=== PATIENT | male | born 1960 | race African-American/Black ===

== ENCOUNTER 2016-09-20 09:35 | Inpatient (IN) | payer OTHER ==
[2016-09-20 10:55] VITALS: BMI 30.4
--- NOTE | 2016-09-20 13:35 | HP ---
CIWA Score - CIWA Score Nausea/Vomitin-No Nausea/No Vomiting Muscle Tremors: 4-Moderate,w/Arms Extend Anxiety: 4-Mod. Anxious/Guarded Agitation: 3 Paroxysmal Sweats: 1-Minimal Palms Moist Orientation: 0-Oriented Tacttile Disturbances: 3-Moderate Itch/Numb/Burn Auditory Disturbances: 0-None Visual Disturbances: 0-None Headache: 0-None Present CIWA-Ar Total Score: 15 Admission ROS BHS - HPI Chief Complaint: DETOX TXB FOR ALCOHOL DEPENDENCE Allergies/Adverse Reactions: Allergies Allergy/AdvReac Type Severity Reaction Status Date / Time No Known Allergies Allergy Verified 09/20/16 12:18 History of Present Illness: 56 Y/O AA/MALE WITH A HX ALCOHOL DEPENDENCE AND SPORADIC COCAINE USE SEEKING DETOX TX. PT STATES WAS AT [facility] TODAY. Exam Limitations: No Limitations, Intoxication - Ebola screening Have you traveled outside of the country in the last 21 days: No Have you had contact with anyone from an Ebola affected area: No Have you been sick,other than usual withdrawal symptoms: No Do you have a fever: No - Review of Systems Constitutional: Chills, Night Sweats EENT: reports: Blurred Vision, Dental Problems (MISSING TOP TEETH) Respiratory: reports: No Symptoms reported Cardiac: reports: Chest Pain, Lightheadedness GI: reports: Diarrhea, Nausea, Poor Fluid Intake, Vomiting, Indigestion, Abdominal cramping : reports: Frequency Musculoskeletal: reports: No Symptoms Reported Neuro: reports: Headache, Tremors, Unsteady Gait, Dizziness Endocrine: reports: No Symptoms Reported Hematology: reports: No Symptoms Reported Psychiatric: reports: Orientated x3, Anxious Other Systems: Reviewed and Negative Patient History - Patient Medical History Hx Anemia: No Hx Asthma: No Hx Chronic Obstructive Pulmonary Disease (COPD): No Hx Cancer: No Hx Cardiac Disorders: Yes (Cardiac ablation for AFIB in 2012) Hx Congestive Heart Failure: No Hx Hypertension: Yes (ON MED) Hx Hypercholesterolemia: Yes (ON MED) Hx Pacemaker: No HX Cerebrovascular Accident: No Hx Seizures: Yes (?etoh related last 1 yr ago.) Hx Dementia: No Hx Diabetes: No Hx Gastrointestinal Disorders: No Hx Liver Disease: No Hx Genitourinary Disorders: No Hx Sexually Transmitted Disorders: No Hx Renal Disease (ESRD): No Hx Thyroid Disease: No Hx Human Immunodeficiency Virus (HIV): No (NEGATIVE HX) Hx Hepatitis C: No Hx Depression: No Hx Suicide Attempt: No (DENIES) Hx Bipolar Disorder: No Hx Schizophrenia: No - Patient Surgical History Past Surgical History: Yes Hx Neurologic Surgery: No Hx Cataract Extraction: No Hx Cardiac Surgery: Yes (Heart Sx, 07/2011 for SV..T CARDIAC ABLATION) Hx Lung Surgery: No Hx Breast Surgery: No Hx Breast Biopsy: No Hx Abdominal Surgery: No Hx Appendectomy: No Hx Cholecystectomy: No Hx Genitourinary Surgery: No Hx Orthopedic Surgery: No Other Surgical History: cardiac ablation for a-fib 2011 Anesthesia Reaction: No - PPD History Previous Implant?: Yes Documented Results: Negative w/o proof Implanted On Prior R Admission?: Yes Date: 08/09/15 Results: 0 mm PPD to be Administered?: Yes - Reproductive History Patient is a Female of Child Bearing Age (11 -55 yrs old): No (MALE) Patient : (N/C) - Smoking Cessation Smoking history: Current every day smoker Have you smoked in the past 12 months: Yes Aproximately how many cigarettes per day: 20 Cigars Per Day: 0 Hx Chewing Tobacco Use: No Initiated information on smoking cessation: Yes 'Breaking Loose' booklet given: 09/20/16 - Substance & Tx. History Hx Alcohol Use: Yes (BEER/VODKA) Hx Substance Use: Yes (COCAINE) Substance Use Type: Alcohol, Cocaine Hx Substance Use Treatment: Yes (LAST TX AT [facility] DETOX) - Substances Abused Alcohol Route: Oral Frequency: Daily Amount used: 10 beers/ 2 pints Age of first use: 12 Date of Last Use: 09/20/16 Cocaine Route: Smoking Frequency: 1-2 times per week Amount used: $100 Age of first use: 26 Date of Last Use: 09/16/16 Family Disease History - Family Disease History Family Disease History: Diabetes: Father (), Heart Disease: Father, Mother, Other: Father Admission Physical Exam BHS - Vital Signs Vital Signs: Vital Signs - 24 hr 09/20/16 10:53 Temperature 97.0 F L Pulse Rate 107 H Respiratory 20 Rate Blood Pressure 140/78 - Physical General Appearance: Yes: Moderate Distress, Alcohol on Breath, Intoxicated, Obese, Irritable, Anxious HEENTM: Yes: EOMI, Normocephalic, MAYLIN, Pharynx Normal Respiratory: Yes: Chest Non-Tender, Lungs Clear, Normal Breath Sounds, No Respiratory Distress Neck: Yes: No masses,lesions,Nodules, Supple, Trachea in good position Breast: Yes: Breast Exam Deferred Cardiology: Yes: Regular Rhythm, S1, S2, Tachycardia Abdominal: Yes: Normal Bowel Sounds, Non Tender, Soft, Protuberent Genitourinary: Yes: Other (N/C) Back: Yes: Within Normal Limits Musculoskeletal: Yes: full range of Motion, Gait Steady Extremities: Yes: Normal Range of Motion, Non-Tender 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: 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: 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 intact, Fully Oriented, Alert Integumentary: Yes: Dry, Warm, Diaphoresis Lymphatic: Yes: Within Normal Limits - Diagnostic (1) Alcohol dependence with uncomplicated withdrawal Current Visit: Yes Status: Acute (2) Arthritis of knee, degenerative Current Visit: Yes Status: Chronic Qualifiers: Osteoarthritis type: primary Laterality: left Qualified Code(s) : M17.12 - Unilateral primary osteoarthritis, left knee (3) Essential hypertension Current Visit: Yes Status: Chronic (4) GERD (gastroesophageal reflux disease) Current Visit: Yes Status: Chronic (5) Hyperlipidemia Current Visit: No Status: Chronic (6) Obesity Current Visit: Yes Status: Chronic Qualifiers: Obesity type: due to excess calories (7) Chronic a-fib Current Visit: Yes Status: Chronic Comment: HX OF A-FIB WITH CARDIAC ABLATION IN 2011 Cleared for Admission [facility] - Detox or Rehab [facility] Level of Care: Medically Managed Detox Regimen/Protocol: Librium [facility] Breath Alcohol Content Breath Alcohol Content: 0.235 Urine Drug Screen - Results Drug Screen Negative: No Urine Drug Screen Results: BZO-Benzodiazepines
[2016-09-20] MEDS ORDERED: guaiFENesin/D-METHORPHAN HB 10 ML UNIT-DOSE CUPS PO PRN (13:45)
[2016-09-20] MEDS ORDERED: LOPERAMIDE HCL 2 MG CAPSULE PO PRN (13:45)
[2016-09-20] MEDS ORDERED: MAGNESIUM CITRATE 300 ML BOTTLE PO PRN (13:45)
[2016-09-20] MEDS ORDERED: MAGNESIUM HYDROX 2400MG/30ML ORAL SUSPENSION 30 ML CUP PO PRN (13:45)
[2016-09-20] MEDS ORDERED: MAG HYDROX/AL HYDROX/SIMETH 30 ML UNIT-DOSE CUP PO PRN (13:45)
[2016-09-20] MEDS ORDERED: MENTHOL/PHENOL 1 EACH UD MM PRN (13:45)
[2016-09-20] MEDS ORDERED: chlordiazePOXIDE HCL 25 MG CAPSULE PO PRN (13:45)
[2016-09-20] MEDS ORDERED: IBUPROFEN 400 MG TABLET (FP) PO PRN (13:45)
[2016-09-20] MEDS ORDERED: P-EPHED 60MG/TRIPROLIDI 2.5MG TABLET PO PRN (13:45)
[2016-09-20] MEDS ORDERED: NICOTINE POLACRILEX 4 MG GUM BUC PRN (13:45)
[2016-09-20] MEDS ORDERED: ACETAMINOPHEN 325 MG TABLET (FP) PO PRN (13:45)
[2016-09-20] MEDS ORDERED: diphenhydrAMINE HCL 50 MG CAPSULE PO PRN (13:45)
[2016-09-20] MEDS: HYDROCHLOROTHIAZIDE 12.5 MG CAPSULE (FP) PO SCH (14:42)
[2016-09-20] MEDS: ASPIRIN 81 MG CHEWABLE TABLETS PO SCH (14:42)
[2016-09-20] MEDS: LISINOPRIL 20 MG TABLET (FP) PO SCH (14:42)
[2016-09-20] MEDS: NICOTINE 21 MG/24 HOURS TOPICAL PATCH TD SCH (14:44)
[2016-09-20 15:42] LABS: URINE APPEARANCE CLEAR; URINE BILIRUBIN NEGATIVE (NEGATIVE); URINE BLOOD NEGATIVE (NEGATIVE); URINE COLOR LTYELLOW; URINE GLUCOSE (UA) NEGATIVE (NEGATIVE); URINE KETONE NEGATIVE (NEGATIVE); URINE LEUK ESTERASE NEGATIVE (NEGATIVE); URINE NITRITE NEGATIVE (NEGATIVE); URINE PROTEIN NEGATIVE (NEGATIVE); URINE UROBILINOGEN NEGATIVE mg/dL (0.2-1.0)
[2016-09-20] MEDS: chlordiazePOXIDE HCL 25 MG CAPSULE PO SCH ×2 (17:33→22:19)
[2016-09-20] MEDS ORDERED: ATORVASTATIN CA 40 MG TABLET (FP) PO SCH (22:00)
[2016-09-20] MEDS ORDERED: THIAMINE HCL 100 MG TABLET (FP) PO SCH (22:00)
[2016-09-21] MEDS: chlordiazePOXIDE HCL 25 MG CAPSULE PO SCH ×2 (06:03→10:14)
[2016-09-21] MEDS ORDERED: PRENATAL VITAMINS W/ FOLIC ACID TABLET (FP) PO SCH (10:00)
[2016-09-21] MEDS: ASPIRIN 81 MG CHEWABLE TABLETS PO SCH (10:14)
[2016-09-21] MEDS: HYDROCHLOROTHIAZIDE 12.5 MG CAPSULE (FP) PO SCH (10:14)
[2016-09-21] MEDS: NICOTINE 21 MG/24 HOURS TOPICAL PATCH TD SCH (10:14)
[2016-09-21] MEDS: LISINOPRIL 20 MG TABLET (FP) PO SCH (10:14)
--- NOTE | 2016-09-21 10:25 | EKG ---
Test Reason : Blood Pressure : / mmHG Vent. Rate : 093 BPM Atrial Rate : 093 BPM P-R Int : 186 ms QRS Dur : 086 ms QT Int : 382 ms P-R-T Axes : 039 -14 036 degrees QTc Int : 474 ms NORMAL SINUS RHYTHM NORMAL ECG NO PREVIOUS ECGS AVAILABLE Confirmed by MD MIKAELA, PRINCE ([id number]) on 09/21/2016 10:24:31 AM Referred By: SLAVA DE LA CRUZ Confirmed By:PRINCE AL MD
[2016-09-21 10:27] LABS: MCH 22.4 pg (25.7-33.7); MCHC 31.5 g/dl (32.0-35.9); MEAN CELL VOLUME 71.1 fl (80-96); PLATELET COUNT 159 K/MM3 (134-434); WHITE BLOOD COUNT 4.7 K/mm3 (4.0-10.0)
[2016-09-21 11:07] LABS: ALBUMIN 3.5 g/dl (3.4-5.0); ALK PHOS 108 U/L (45-117); ANION GAP 11 (8-16); BILIRUBIN,TOTAL 0.2 mg/dL (0.2-1.0); CALCIUM 8.3 mg/dL (8.5-10.1); CO2 22 mmol/L (21-32); CREATININE 1.1 mg/dL (0.7-1.3); GLUCOSE,RANDOM 113 mg/dL (74-106); SGOT/AST 33 U/L (15-37); SGPT/ALT 41 U/L (12-78)
--- NOTE | 2016-09-21 12:48 | PN ---
S CIWA - CIWA Score Nausea/Vomitin Muscle Tremors: 3 Anxiety: 2 Agitation: 1-Slight > Activity Paroxysmal Sweats: 3 Orientation: 0-Oriented Tacttile Disturbances: 0-None Auditory Disturbances: 2-Mild Harshness/Frighten Visual Disturbances: 2-Mild Sensitivity Headache: 3-Moderate CIWA-Ar Total Score: 19 BHS Progress Note (SOAP) Subjective: Tremors, Fatigue, Nausea, Interrupted Sleep, H/A, Sweating. Objective: PT. A & O X 3. NO ACUTE DISTRESS. PT. DENIES CHEST PAIN. 09/21/16 12:45 Vital Signs Temperature 97.2 F L 09/21/16 09:11 Pulse Rate 80 09/21/16 09:11 Respiratory Rate 18 09/21/16 09:11 Blood Pressure 143/98 09/21/16 09:11 O2 Sat by Pulse Oximetry (%) Laboratory Tests 09/20/16 09/21/16 09/21/16 14:15 05:45 05:45 WBC 4.7 RBC 5.58 Hgb 12.5 Hct 39.7 MCV 71.1 L MCH 22.4 L MCHC 31.5 L RDW 19.0 H D Plt Count 159 MPV 10.0 Sodium 141 Potassium 4.2 Chloride 108 H Carbon Dioxide 22 Anion Gap 11 BUN 16 Creatinine 1.1 Creat Clearance w eGFR > 60 Random Glucose 113 H Calcium 8.3 L Total Bilirubin 0.2 D AST 33 ALT 41 Alkaline Phosphatase 108 Total Protein 7.0 Albumin 3.5 Urine Color Ltyellow Urine Appearance Clear Urine pH 5.0 Ur Specific [place] 1.015 Urine Protein Negative Urine Glucose (UA) Negative Urine Ketones Negative Urine Blood Negative Urine Nitrite Negative Urine Bilirubin Negative Urine Urobilinogen Negative Ur Leukocyte Esterase Negative LABS NOTED. 09/21/16 12:48 Assessment: 09/21/16 12:46 WITHDRAWAL SYMPTOMS. Plan: CONTINUE DETOX. CONTINUE TO MONITOR BP.
[2016-09-21] MEDS ORDERED: chlordiazePOXIDE HCL 25 MG CAPSULE PO SCH (17:00)
--- NOTE | 2016-09-21 17:58 | PN ---
S Progress Note Note: called by nurse,patient did not want to complete treatment,seen by counselor, did not want to wait, signed release ama
--- NOTE | 2016-09-21 18:03 | DS ---
[facility] Detox Discharge Summary Admission Date: 09/20/16 Discharge Date: 09/21/16 - History Present History: Alcohol Dependence, Cannabis Dependence, Cocaine Dependence Additional Comments: patient did not want to complete treatment,seen by counselor,did not want to wait,signed releasea ama, did not want to wait, Pertinent Past History: chronic atrial fibrillation hypertension hypercholesterolemia arthritis - Physical Exam Results Vital Signs: Vital Signs Temperature 96.4 F L 09/21/16 14:16 Pulse Rate 83 09/21/16 14:16 Respiratory Rate 18 09/21/16 14:16 Blood Pressure 137/86 09/21/16 14:16 O2 Sat by Pulse Oximetry (%) Pertinent Admission Physical Exam Findings: withdrawal symptom - Medication Discharge Medications: Ambulatory Orders Esomeprazole Mag Trihydrate [Nexium] 40 mg PO DAILY #30 capsule.ec 09/19/13 Aspirin [ASA -] 81 mg PO DAILY #30 tab.chew 07/22/14 Atorvastatin Ca [Lipitor] 40 mg PO HS #30 tablet 07/22/14 Hydrochlorothiazide [Hctz -] 12.5 mg PO DAILY 09/20/16 Lisinopril [Prinivil] 20 mg PO DAILY 09/20/16 - Diagnosis (1) Alcohol dependence with uncomplicated withdrawal Current Visit: Yes Status: Acute (2) Arthritis of knee, degenerative Current Visit: Yes Status: Chronic Qualifiers: Osteoarthritis type: primary Laterality: left Qualified Code(s) : M17.12 - Unilateral primary osteoarthritis, left knee (3) Chronic a-fib Current Visit: Yes Status: Chronic (4) Essential hypertension Current Visit: Yes Status: Chronic (5) GERD (gastroesophageal reflux disease) Current Visit: Yes Status: Chronic (6) Obesity Current Visit: Yes Status: Chronic Qualifiers: Obesity type: due to excess calories (7) Cocaine dependence Current Visit: No Status: Acute (8) Blackout Current Visit: No Status: Chronic (9) Hyperlipidemia Current Visit: No Status: Chronic - AMA Did Patient Leave Against Medical Advice: Yes
[2016-09-21 18:16] VITALS: BP 123/76; PULSE 96; TEMP 97.8
[2016-09-22] MEDS ORDERED: chlordiazePOXIDE 5 MG CAPSULE PO SCH (17:00)
[2016-09-23] MEDS ORDERED: chlordiazePOXIDE HCL 10 MG CAPSULE PO SCH (17:00)
== END 2016-09-21 17:40 | disposition left against medical advice (07) | DRG 770 ==
LOC: YASAS 09:35 → Y3N 12:32
PROVIDERS: ADMIT Internal Medicine Addiction Medicine; ATTEND Internal Medicine Addiction Medicine
PROC: HZ2ZZZZ Detoxification Services for Substance Abuse Treatment (ICD-10-PCS; principal; 2016-09-21)
DX: F10.230 Alcohol dependence with withdrawal, uncomplicated (principal); F17.210 Nicotine dependence, cigarettes, uncomplicated; F14.10 Cocaine abuse, uncomplicated; I10 Essential (primary) hypertension; E78.00 Pure hypercholesterolemia, unspecified; M17.12 Unilateral primary osteoarthritis, left knee; K21.9 Gastro-esophageal reflux disease without esophagitis; Z86.69 Personal history of other diseases of the nervous system and sense organs; E66.09 Other obesity due to excess calories; Z68.30 Body mass index [BMI] 30.0-30.9, adult
CPT/HCPCS: 36415; 80053; 81003; 85027; 86593; 93005; 93010

== ENCOUNTER 2016-11-27 10:51 | Inpatient (IN) | payer OTHER ==
[2016-11-27 12:51] VITALS: BMI 30.2
--- NOTE | 2016-11-27 15:41 | HP ---
CIWA Score - CIWA Score Nausea/Vomitin Muscle Tremors: 4-Moderate,w/Arms Extend Anxiety: 1-Mildly Anxious Agitation: 0-Normal Activity Paroxysmal Sweats: 3 Orientation: 2-Disoriented Date<2 days Tacttile Disturbances: 0-None Auditory Disturbances: 2-Mild Harshness/Frighten Visual Disturbances: 2-Mild Sensitivity Headache: 2-Mild CIWA-Ar Total Score: 21 Admission ROS BHS - HPI Chief Complaint: "I need help." Pt. is here to Detox from Alcohol. Allergies/Adverse Reactions: Allergies Allergy/AdvReac Type Severity Reaction Status Date / Time No Known Allergies Allergy Verified 11/27/16 13:41 History of Present Illness: Pt. is a 56 YO male here to Detox from alcohol. Pt. has had several previous detox admissions at [facility]. Pt. has also had Detox admissions at [facility] ([place], [place] Longest recent period of sobriety: 7 months (02/2016 - 08/2016). Exam Limitations: No Limitations - Ebola screening Have you traveled outside of the country in the last 21 days: No Have you had contact with anyone from an Ebola affected area: No Have you been sick,other than usual withdrawal symptoms: No Do you have a fever: No - Review of Systems Constitutional: Chills, Diaphoresis, Fever, Loss of Appetite, Malaise, Night Sweats EENT: reports: Blurred Vision, Dental Problems (Missing several teeth.) Respiratory: reports: No Symptoms reported Cardiac: reports: No Symptoms Reported GI: reports: Diarrhea, Nausea, Vomiting, Indigestion (Heartburn.) : reports: No Symptoms Reported Musculoskeletal: reports: Neck Pain, Joint Stiffness (Arhtiritis, Bilateral Hips.) Integumentary: reports: No Symptoms Reported Neuro: reports: Headache, Tremors Endocrine: reports: No Symptoms Reported Hematology: reports: Anemia (Iron-deficiency in past, takes Iron supplement.) Psychiatric: reports: Judgement Intact, Mood/Affect Appropiate, Anxious, Depressed (Interrmittent, No previous treatment.), Disorientated (To Day / Date. ) Other Systems: Reviewed and Negative Patient History - Patient Medical History Hx Anemia: Yes (Iron-Deficiency; Takes Iron Supplement.) Hx Asthma: No Hx Chronic Obstructive Pulmonary Disease (COPD): No Hx Cancer: No Hx Cardiac Disorders: Yes (cardiac ablation in 2011 for AFIB; Angina (uncertain about type).) Hx Congestive Heart Failure: No Hx Hypertension: Yes (on meds.) Hx Hypercholesterolemia: Yes (ON MED) Hx Pacemaker: No HX Cerebrovascular Accident: No Hx Seizures: No Hx Dementia: No Hx Diabetes: No Hx Gastrointestinal Disorders: Yes (GERD; Takes Nexium.) Hx Liver Disease: No Hx Genitourinary Disorders: No Hx Sexually Transmitted Disorders: No Hx Renal Disease (ESRD): No Hx Thyroid Disease: No Hx Human Immunodeficiency Virus (HIV): No (Last Tested approx. 3 months ago: NEGATIVE. ) Hx Hepatitis C: No (Last Tested approx. 3 months ago: NEGATIVE. ) Hx Depression: Yes (Interrmittent; No previous treatment.) Hx Suicide Attempt: No (PATIENT DENIES CURENT SI / HI.) Hx Bipolar Disorder: No Hx Schizophrenia: No Other Medical History: DENIES. - Patient Surgical History Past Surgical History: Yes Hx Neurologic Surgery: No Hx Cataract Extraction: No Hx Cardiac Surgery: Yes (Heart Sx, 07/2011 for SV..T CARDIAC ABLATION) Hx Lung Surgery: No Hx Breast Surgery: No Hx Breast Biopsy: No Hx Abdominal Surgery: No Hx Appendectomy: No Hx Cholecystectomy: No Hx Genitourinary Surgery: No Hx Section: No Hx Orthopedic Surgery: No Other Surgical History: cardiac ablation for a-fib 2011 Anesthesia Reaction: No - PPD History Previous Implant?: Yes Documented Results: Negative w/o proof Implanted On Prior [facility] Admission?: Yes Date: 08/09/15 Results: 0 mm PPD to be Administered?: Yes - Reproductive History Patient is a Female of Child Bearing Age (11 -55 yrs old): No (PATIENT IS MALE.) - Smoking Cessation Smoking history: Current every day smoker Have you smoked in the past 12 months: Yes Aproximately how many cigarettes per day: 10 Cigars Per Day: 0 Hx Chewing Tobacco Use: No Initiated information on smoking cessation: Yes 'Breaking Loose' booklet given: 11/27/16 (GIVEN ON UNIT.) - Substance & Tx. History Hx Alcohol Use: Yes Hx Substance Use: Yes Substance Use Type: Alcohol Hx Substance Use Treatment: Yes (Previous Detox admissions at [facility] & [facility] (most recent [facility]: 09/2016).) - Substances Abused Alcohol Route: Oral Frequency: Daily Amount used: 1 liter vodka/ 18 beers Age of first use: 11 Date of Last Use: 11/27/16 Family Disease History - Family Disease History Family Disease History: Diabetes: Father (), Heart Disease: Father, Mother, Brother, Other: Father Admission Physical Exam [facility] - Vital Signs Vital Signs: Vital Signs - 24 hr 11/27/16 12:49 Temperature 97.9 F Pulse Rate 50 L Respiratory 20 Rate Blood Pressure 156/77 - Physical General Appearance: Yes: No Apparent Distress, Nourished, Appropriately Dressed , Tremorous, Anxious HEENTM: Yes: Hearing grossly Normal, Normocephalic, Normal Voice, MAYLIN, Pharynx Normal Respiratory: Yes: Chest Non-Tender, Lungs Clear, No Respiratory Distress, No Accessory Muscle Use Neck: Yes: No masses,lesions,Nodules, Supple, Trachea in good position Breast: Yes: Breast Exam Deferred Cardiology: Yes: Regular Rhythm, Regular Rate, S1, S2 Abdominal: Yes: Normal Bowel Sounds, Non Tender, Soft, Protuberent Genitourinary: Yes: Within Normal Limits Back: Yes: Decreased Range of Motion Musculoskeletal: Yes: Gait Steady, Back pain, Joint Stiffness Extremities: Yes: Tremors 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: Yes: Alert, Normal Mood/Affect, Normal Response, Disoriented (To Day / Date.) Integumentary: Yes: Normal Color, Dry, Warm Lymphatic: Yes: Within Normal Limits - Diagnostic (1) Alcohol dependence with uncomplicated withdrawal Current Visit: Yes Status: Acute (2) Essential hypertension Current Visit: Yes Status: Chronic (3) GERD (gastroesophageal reflux disease) Current Visit: Yes Status: Chronic Qualifiers: Esophagitis presence: esophagitis presence not specified Qualified Code(s): K21.9 - Gastro-esophageal reflux disease without esophagitis (4) Hyperlipidemia Current Visit: Yes Status: Chronic (5) Nicotine dependence Current Visit: Yes Status: Chronic Qualifiers: Nicotine product type: cigarettes Substance use status: uncomplicated Qualified Code(s): F17.210 - Nicotine dependence, cigarettes, uncomplicated (6) History of atrial fibrillation Current Visit: Yes Status: Chronic Comment: Treated with Cardiac Ablation, 2011. (7) History of cardiac radiofrequency ablation Current Visit: Yes Status: Chronic Cleared for Admission [facility] - Detox or Rehab [facility] Level of Care: Medically Managed Detox Regimen/Protocol: Librium [facility] Breath Alcohol Content Breath Alcohol Content: 0.113 Urine Drug Screen - Results Drug Screen Negative: No Urine Drug Screen Results: BZO-Benzodiazepines
[2016-11-27] MEDS ORDERED: ACETAMINOPHEN 325 MG TABLET (FP) PO PRN (16:10)
[2016-11-27] MEDS ORDERED: diphenhydrAMINE HCL 50 MG CAPSULE PO PRN (16:10)
[2016-11-27] MEDS ORDERED: LOPERAMIDE HCL 2 MG CAPSULE PO PRN (16:10)
[2016-11-27] MEDS ORDERED: IBUPROFEN 400 MG TABLET (FP) PO PRN (16:10)
[2016-11-27] MEDS ORDERED: MAGNESIUM HYDROX 2400MG/30ML ORAL SUSPENSION 30 ML CUP PO PRN (16:10)
[2016-11-27] MEDS ORDERED: chlordiazePOXIDE HCL 25 MG CAPSULE PO PRN (16:10)
[2016-11-27] MEDS ORDERED: MAGNESIUM CITRATE 300 ML BOTTLE PO PRN (16:10)
[2016-11-27] MEDS ORDERED: MENTHOL/PHENOL 1 EACH UD MM PRN (16:10)
[2016-11-27] MEDS ORDERED: hydrOXYzine PAMOATE 50 MG CAPSULE (FP) PO PRN (16:10)
[2016-11-27] MEDS ORDERED: guaiFENesin/D-METHORPHAN HB 10 ML UNIT-DOSE CUPS PO PRN (16:10)
[2016-11-27] MEDS ORDERED: NICOTINE POLACRILEX 2 MG GUM BC PRN (16:10)
[2016-11-27] MEDS ORDERED: MAG HYDROX/AL HYDROX/SIMETH 30 ML UNIT-DOSE CUP PO PRN (16:10)
[2016-11-27] MEDS ORDERED: P-EPHED 60MG/TRIPROLIDI 2.5MG TABLET PO PRN (16:10)
[2016-11-27] MEDS ORDERED: chlordiazePOXIDE HCL 25 MG CAPSULE PO ONE (18:00)
[2016-11-27] MEDS: ASPIRIN 81 MG CHEWABLE TABLETS PO SCH (18:31)
[2016-11-27] MEDS: LISINOPRIL 20 MG TABLET (FP) PO SCH (18:31)
[2016-11-27] MEDS: PANTOPRAZOLE 40 MG TABLET (FP) PO SCH (18:31)
[2016-11-27] MEDS: chlordiazePOXIDE HCL 25 MG CAPSULE PO SCH ×2 (18:31→22:37)
[2016-11-27] MEDS: HYDROCHLOROTHIAZIDE 12.5 MG CAPSULE (FP) PO SCH (18:31)
[2016-11-27] MEDS: THIAMINE HCL 100 MG TABLET (FP) PO SCH (22:37)
[2016-11-27] MEDS: ATORVASTATIN CA 40 MG TABLET (FP) PO SCH (23:00)
[2016-11-27] MEDS: NICOTINE 21 MG/24 HOURS TOPICAL PATCH TD SCH (23:01)
[2016-11-28 01:38] LABS: URINE APPEARANCE CLEAR; URINE BILIRUBIN NEGATIVE (NEGATIVE); URINE BLOOD NEGATIVE (NEGATIVE); URINE COLOR COLORLESS; URINE GLUCOSE (UA) NEGATIVE (NEGATIVE); URINE KETONE NEGATIVE (NEGATIVE); URINE LEUK ESTERASE NEGATIVE (NEGATIVE); URINE NITRITE NEGATIVE (NEGATIVE); URINE PROTEIN NEGATIVE (NEGATIVE); URINE UROBILINOGEN NEGATIVE mg/dL (0.2-1.0)
[2016-11-28] MEDS: chlordiazePOXIDE HCL 25 MG CAPSULE PO SCH ×4 (05:43→22:38)
--- NOTE | 2016-11-28 09:48 | EKG ---
Test Reason : Blood Pressure : / mmHG Vent. Rate : 107 BPM Atrial Rate : 107 BPM P-R Int : 180 ms QRS Dur : 096 ms QT Int : 356 ms P-R-T Axes : 055 001 052 degrees QTc Int : 475 ms SINUS TACHYCARDIA WITH FREQUENT PREMATURE VENTRICULAR COMPLEXES OTHERWISE NORMAL ECG WHEN COMPARED WITH ECG OF 20-SEP-2016 13:30, PREMATURE VENTRICULAR COMPLEXES ARE NOW PRESENT Confirmed by RENZO VINCENT, JUDI ([id number]) on 11/28/2016 9:47:52 AM Referred By: Confirmed By:JUDI MULLER MD
[2016-11-28 10:03] LABS: MCH 22.6 pg (25.7-33.7); MCHC 31.6 g/dl (32.0-35.9); MEAN CELL VOLUME 71.4 fl (80-96); PLATELET COUNT 259 K/MM3 (134-434); RDW 17.2 % (11.9-15.9); WHITE BLOOD COUNT 5.3 K/mm3 (4.0-10.0)
[2016-11-28 10:15] LABS: INR 0.86 (0.82-1.09); PROTHROMBIN TIME (PATIENT) 9.4 SEC (9.98-11.88)
--- NOTE | 2016-11-28 10:31 | PN ---
S CIWA - CIWA Score Nausea/Vomitin-No Nausea/No Vomiting Muscle Tremors: 4-Moderate,w/Arms Extend Anxiety: 4-Mod. Anxious/Guarded Agitation: 4-Moderately Restless Paroxysmal Sweats: 3 Orientation: 0-Oriented Tacttile Disturbances: 0-None Auditory Disturbances: 0-None Visual Disturbances: 0-None Headache: 0-None Present CIWA-Ar Total Score: 15 BHS Progress Note (SOAP) Subjective: irritable sweats shakes interrupted sleep Objective: 11/28/16 10:30 Vital Signs Temperature 97.5 F L 11/28/16 06:19 Pulse Rate 72 11/28/16 06:19 Respiratory Rate 18 11/28/16 06:19 Blood Pressure 134/81 11/28/16 06:19 O2 Sat by Pulse Oximetry (%) Laboratory Tests 11/27/16 11/28/16 11/28/16 23:12 06:00 07:00 WBC 5.3 RBC 6.07 H Hgb 13.7 Hct 43.4 MCV 71.4 L MCH 22.6 L MCHC 31.6 L RDW 17.2 H Plt Count 259 D MPV 9.0 PT with INR 9.40 L INR 0.86 Urine Color Colorless Urine Appearance Clear Urine pH 6.0 Ur Specific [place] <= 1.005 Urine Protein Negative Urine Glucose (UA) Negative Urine Ketones Negative Urine Blood Negative Urine Nitrite Negative Urine Bilirubin Negative Urine Urobilinogen Negative labs pending AAOx3 ambulating no acute distress Assessment: 11/28/16 10:32 withdrawal sx Plan: continue detox increase fluids
[2016-11-28] MEDS: PRENATAL VITAMINS W/ FOLIC ACID TABLET (FP) PO SCH (10:50)
[2016-11-28] MEDS: ASPIRIN 81 MG CHEWABLE TABLETS PO SCH (10:50)
[2016-11-28] MEDS: LISINOPRIL 20 MG TABLET (FP) PO SCH (10:50)
[2016-11-28] MEDS: ONDANSETRON *ODT* 4 MG TABLET SL PRN (10:50)
[2016-11-28] MEDS: PANTOPRAZOLE 40 MG TABLET (FP) PO SCH (10:50)
[2016-11-28] MEDS: HYDROCHLOROTHIAZIDE 12.5 MG CAPSULE (FP) PO SCH (10:50)
[2016-11-28] MEDS: NICOTINE 21 MG/24 HOURS TOPICAL PATCH TD SCH (10:51)
[2016-11-28 11:08] LABS: ALBUMIN 3.8 g/dl (3.4-5.0); ALK PHOS 105 U/L (45-117); ANION GAP 13 (8-16); CALCIUM 8.6 mg/dL (8.5-10.1); CO2 23 mmol/L (21-32); CREATININE 1.2 mg/dL (0.7-1.3); GLUCOSE,RANDOM 127 mg/dL (74-106); SGOT/AST 47 U/L (15-37); SGPT/ALT 55 U/L (12-78); TOT PROT 7.4 g/dl (6.4-8.2)
[2016-11-28 11:09] LABS: BILIRUBIN,TOTAL 0.4 mg/dL (0.2-1.0)
[2016-11-28 12:01] LABS: HIV 1 & 2 AB NEGATIVE; HIV 1 AGp24 NEGATIVE
[2016-11-28] MEDS: THIAMINE HCL 100 MG TABLET (FP) PO SCH (22:38)
[2016-11-28] MEDS: ATORVASTATIN CA 40 MG TABLET (FP) PO SCH (22:38)
[2016-11-29] MEDS: chlordiazePOXIDE HCL 25 MG CAPSULE PO SCH ×2 (06:12→11:08)
[2016-11-29] MEDS: ASPIRIN 81 MG CHEWABLE TABLETS PO SCH (11:07)
[2016-11-29] MEDS: NICOTINE 21 MG/24 HOURS TOPICAL PATCH TD SCH (11:08)
[2016-11-29] MEDS: HYDROCHLOROTHIAZIDE 12.5 MG CAPSULE (FP) PO SCH (11:08)
[2016-11-29] MEDS: PRENATAL VITAMINS W/ FOLIC ACID TABLET (FP) PO SCH (11:09)
[2016-11-29] MEDS: LISINOPRIL 20 MG TABLET (FP) PO SCH (11:09)
[2016-11-29] MEDS: PANTOPRAZOLE 40 MG TABLET (FP) PO SCH (11:09)
[2016-11-29] MEDS: ONDANSETRON *ODT* 4 MG TABLET SL PRN (11:09)
--- NOTE | 2016-11-29 11:52 | PN ---
[facility] CIWA - CIWA Score Nausea/Vomitin Muscle Tremors: 3 Anxiety: 3 Agitation: 3 Paroxysmal Sweats: 1-Minimal Palms Moist Orientation: 0-Oriented Tacttile Disturbances: 1-Very Mild Itch/Numbness Auditory Disturbances: 1-Very Mild Visual Disturbances: 0-None Headache: 2-Mild CIWA-Ar Total Score: 17 S Progress Note (SOAP) Subjective: ALERT,IRRITABLE,ANXIOUS,INTERRUPTED SLEEP,TREMOR Objective: 11/29/16 11:45 Vital Signs Temperature 97.9 F 11/29/16 06:53 Pulse Rate 75 11/29/16 06:53 Respiratory Rate 18 11/29/16 06:53 Blood Pressure 108/59 11/29/16 06:53 O2 Sat by Pulse Oximetry (%) EKG SINUS TACHYCARDIA 107/MIN NO CHEST PAIN,NO SOB,NO DIZZINESS Laboratory Last Values WBC 5.3 K/mm3 (4.0-10.0) 11/28/16 06:00 RBC 6.07 M/mm3 (4.00-5.60) H 11/28/16 06:00 Hgb 13.7 GM/dL (11.7-16.9) 11/28/16 06:00 Hct 43.4 % (35.4-49) 11/28/16 06:00 MCV 71.4 fl (80-96) L 11/28/16 06:00 MCH 22.6 pg (25.7-33.7) L 11/28/16 06:00 MCHC 31.6 g/dl (32.0-35.9) L 11/28/16 06:00 RDW 17.2 % (11.9-15.9) H 11/28/16 06:00 Plt Count 259 K/MM3 (134-434) D 11/28/16 06:00 MPV 9.0 fl (7.5-11.1) 11/28/16 06:00 PT with INR 9.40 SEC (9.98-11.88) L 11/28/16 07:00 INR 0.86 (0.82-1.09) 11/28/16 07:00 Sodium 134 mmol/L (136-145) L 11/28/16 06:00 Potassium 4.1 mmol/L (3.5-5.1) 11/28/16 06:00 Chloride 98 mmol/L (98-107) 11/28/16 06:00 Carbon Dioxide 23 mmol/L (21-32) 11/28/16 06:00 Anion Gap 13 (8-16) 11/28/16 06:00 BUN 18 mg/dL (7-18) 11/28/16 06:00 Creatinine 1.2 mg/dL (0.7-1.3) 11/28/16 06:00 Creat Clearance w eGFR > 60 (>60) 11/28/16 06:00 Random Glucose 127 mg/dL (74-106) H 11/28/16 06:00 Calcium 8.6 mg/dL (8.5-10.1) 11/28/16 06:00 Total Bilirubin 0.4 mg/dL (0.2-1.0) D 11/28/16 06:00 AST 47 U/L (15-37) H D 11/28/16 06:00 ALT 55 U/L (12-78) D 11/28/16 06:00 Alkaline Phosphatase 105 U/L (45-117) 11/28/16 06:00 Total Protein 7.4 g/dl (6.4-8.2) 11/28/16 06:00 Albumin 3.8 g/dl (3.4-5.0) 11/28/16 06:00 Urine Color Colorless 11/27/16 23:12 Urine Appearance Clear 11/27/16 23:12 Urine pH 6.0 (5.0-8.0) 11/27/16 23:12 Ur Specific [place] <= 1.005 (1.005-1.025) 11/27/16 23:12 Urine Protein Negative (NEGATIVE) 11/27/16 23:12 Urine Glucose (UA) Negative (NEGATIVE) 11/27/16 23:12 Urine Ketones Negative (NEGATIVE) 11/27/16 23:12 Urine Blood Negative (NEGATIVE) 11/27/16 23:12 Urine Nitrite Negative (NEGATIVE) 11/27/16 23:12 Urine Bilirubin Negative (NEGATIVE) 11/27/16 23:12 Urine Urobilinogen Negative mg/dL (0.2-1.0) 11/27/16 23:12 RPR Titer Nonreactive (NONREACTIVE) 11/28/16 06:00 Hepatitis C Antibody 2.0 s/co ratio (0.0-0.9) H 11/27/16 07:00 HIV 1&2 Antibody Screen Negative 11/28/16 06:00 HIV P24 Antigen Negative 11/28/16 06:00 Assessment: 11/29/16 11:52 WITHDRAWAL SYMPTOM Plan: CONTINUE DETOX,PATIENT WILL FOLLOW UP WITH HIS PMD AT [facility] FOR HEPATITIS C
[2016-11-29] MEDS: chlordiazePOXIDE 5 MG CAPSULE PO SCH ×2 (18:16→22:28)
[2016-11-29] MEDS: THIAMINE HCL 100 MG TABLET (FP) PO SCH (22:28)
[2016-11-29] MEDS: ATORVASTATIN CA 40 MG TABLET (FP) PO SCH (22:28)
[2016-11-30] MEDS: chlordiazePOXIDE 5 MG CAPSULE PO SCH ×2 (05:45→10:27)
[2016-11-30 06:30] VITALS: BP 126/77; PULSE 68; TEMP 96.8
[2016-11-30] MEDS: PRENATAL VITAMINS W/ FOLIC ACID TABLET (FP) PO SCH (10:25)
[2016-11-30] MEDS: LISINOPRIL 20 MG TABLET (FP) PO SCH (10:25)
[2016-11-30] MEDS: PANTOPRAZOLE 40 MG TABLET (FP) PO SCH (10:25)
[2016-11-30] MEDS: HYDROCHLOROTHIAZIDE 12.5 MG CAPSULE (FP) PO SCH (10:25)
[2016-11-30] MEDS: ASPIRIN 81 MG CHEWABLE TABLETS PO SCH (10:25)
[2016-11-30] MEDS: NICOTINE 21 MG/24 HOURS TOPICAL PATCH TD SCH (10:27)
--- NOTE | 2016-11-30 10:32 | PN ---
S Progress Note (SOAP) Subjective: alert,no complaint Objective: 11/30/16 10:31 Vital Signs Temperature 96.8 F L 11/30/16 06:00 Pulse Rate 68 11/30/16 06:00 Respiratory Rate 18 11/30/16 06:00 Blood Pressure 126/77 11/30/16 06:00 O2 Sat by Pulse Oximetry (%) Assessment: 11/30/16 10:31 stable for discharge Plan: follow up with after care program as arrangement
--- NOTE | 2016-11-30 10:38 | DS ---
[facility] Detox Discharge Summary Admission Date: 11/27/16 Discharge Date: 11/30/16 - History Present History: Alcohol Dependence Additional Comments: follow up with after care program as arrangement and follow up with pmd at [facility] for hepatitis c Pertinent Past History: essential hypertension gerd hyperlipidemia history of atrial fibrillation history of ablation hepatitis c - Physical Exam Results Vital Signs: Vital Signs Temperature 96.8 F L 11/30/16 06:00 Pulse Rate 68 11/30/16 06:00 Respiratory Rate 18 11/30/16 06:00 Blood Pressure 126/77 11/30/16 06:00 O2 Sat by Pulse Oximetry (%) Pertinent Admission Physical Exam Findings: withdrawal symptom - Treatment Hospital Course: Detox Protocol Followed, Detoxed Safely, Responded well, Discharged Condition Good, Rehab Referral Accepted Patient has Accepted a Rehab Referral to: [facility] - Medication Discharge Medications: Ambulatory Orders Esomeprazole Mag Trihydrate [Nexium] 40 mg PO DAILY #30 capsule.ec 09/19/13 Aspirin [ASA -] 81 mg PO DAILY #30 tab.chew 07/22/14 Atorvastatin Ca [Lipitor] 40 mg PO HS #30 tablet 07/22/14 Hydrochlorothiazide [Hctz -] 12.5 mg PO DAILY 09/20/16 Lisinopril [Prinivil] 20 mg PO DAILY 09/20/16 - Diagnosis (1) Alcohol dependence with uncomplicated withdrawal Current Visit: Yes Status: Chronic (2) Essential hypertension Current Visit: Yes Status: Chronic (3) GERD (gastroesophageal reflux disease) Current Visit: Yes Status: Chronic Qualifiers: Esophagitis presence: without esophagitis Qualified Code(s): K21.9 - Gastro-esophageal reflux disease without esophagitis (4) History of atrial fibrillation Current Visit: Yes Status: Chronic (5) Hyperlipidemia Current Visit: Yes Status: Chronic (6) Nicotine dependence Current Visit: Yes Status: Chronic Qualifiers: Nicotine product type: cigarettes Substance use status: uncomplicated Qualified Code(s): F17.210 - Nicotine dependence, cigarettes, uncomplicated (7) Cocaine dependence Current Visit: No Status: Acute (8) Arthritis of knee, degenerative Current Visit: No Status: Chronic Qualifiers: Osteoarthritis type: primary Laterality: left Qualified Code(s) : M17.12 - Unilateral primary osteoarthritis, left knee (9) Obesity Current Visit: No Status: Chronic Qualifiers: Obesity type: due to excess calories (10) Hepatitis C Current Visit: Yes Status: Acute - AMA Did Patient Leave Against Medical Advice: No
[2016-11-30] MEDS ORDERED: chlordiazePOXIDE HCL 10 MG CAPSULE PO SCH (17:00)
== END 2016-11-30 10:38 | disposition home or self-care (01) | DRG 774 ==
LOC: YASAS 10:51 → Y6N 16:02
PROVIDERS: ADMIT Internal Medicine; ATTEND Internal Medicine
PROC: HZ2ZZZZ Detoxification Services for Substance Abuse Treatment (ICD-10-PCS; principal; 2016-11-27)
DX: F10.230 Alcohol dependence with withdrawal, uncomplicated (principal); F14.20 Cocaine dependence, uncomplicated; F17.210 Nicotine dependence, cigarettes, uncomplicated; F32.9 Major depressive disorder, single episode, unspecified; B18.2 Chronic viral hepatitis C; I25.119 Atherosclerotic heart disease of native coronary artery with unspecified angina pectoris; I10 Essential (primary) hypertension; I48.91 Unspecified atrial fibrillation; E78.5 Hyperlipidemia, unspecified; K21.9 Gastro-esophageal reflux disease without esophagitis; M17.12 Unilateral primary osteoarthritis, left knee; E66.01 Morbid (severe) obesity due to excess calories; Z68.30 Body mass index [BMI] 30.0-30.9, adult; Z59.0 Homelessness
CPT/HCPCS: 36415; 80053; 81003; 85027; 85610; 86593; 86803; 87389; 87522; 93005; 93010

== ENCOUNTER 2017-03-09 11:06 | Inpatient (IN) | payer OTHER ==
[2017-03-09 12:33] VITALS: BMI 30.2
--- NOTE | 2017-03-09 14:04 | HP ---
CIWA Score - CIWA Score Nausea/Vomitin-Mild Nausea/No Vomiting Muscle Tremors: 4-Moderate,w/Arms Extend Anxiety: 4-Mod. Anxious/Guarded Agitation: 1-Slight > Activity Paroxysmal Sweats: 1-Minimal Palms Moist Orientation: 1-Uncertain about Date Tacttile Disturbances: 1-Very Mild Itch/Numbness Auditory Disturbances: 1-Very Mild Visual Disturbances: 1-Very Mild Sensitivity Headache: 1-Very Mild CIWA-Ar Total Score: 16 Admission ROS S - HPI Chief Complaint: I want to stop drinking. It don't work if I try on my own Allergies/Adverse Reactions: Allergies Allergy/AdvReac Type Severity Reaction Status Date / Time No Known Allergies Allergy Verified 11/27/16 13:41 History of Present Illness: 56 yo gentleman here for detox from alcohol - longest time sober six months; previously here nov 2016, went to rehab for two months but relapsed upon discharge. No seizures but does have blackouts. Limping - states he fell out while drunk two weeks ago - was evaluated at [facility] - told nothing broken - no overt swelling noted in ankle or knee but states he sprained his left knee. Exam Limitations: Intoxication - Ebola screening Have you traveled outside of the country in the last 21 days: No Have you had contact with anyone from an Ebola affected area: No Have you been sick,other than usual withdrawal symptoms: No Do you have a fever: No - Review of Systems Constitutional: Loss of Appetite, Changes in sleep, Weakness EENT: reports: No Symptoms Reported Respiratory: reports: No Symptoms reported Cardiac: reports: No Symptoms Reported GI: reports: Abdominal cramping : reports: Frequency Musculoskeletal: reports: Joint Pain, Other (left knee) Integumentary: reports: No Symptoms Reported Neuro: reports: Headache Endocrine: reports: No Symptoms Reported Hematology: reports: No Symptoms Reported Psychiatric: reports: Judgement Intact, Anxious Other Systems: Reviewed and Negative Patient History - Patient Medical History Hx Anemia: No Hx Asthma: No Hx Chronic Obstructive Pulmonary Disease (COPD): No Hx Cancer: No Hx Cardiac Disorders: Yes (cardiac ablation in 2011 for AFIB; Angina (uncertain about type).) Hx Congestive Heart Failure: No Hx Hypertension: Yes (on meds.) Hx Hypercholesterolemia: Yes (ON MED) Hx Pacemaker: No HX Cerebrovascular Accident: No Hx Seizures: No Hx Dementia: No Hx Diabetes: No Hx Gastrointestinal Disorders: No Hx Liver Disease: No Hx Genitourinary Disorders: No Hx Sexually Transmitted Disorders: No Hx Renal Disease (ESRD): No Hx Thyroid Disease: No Hx Human Immunodeficiency Virus (HIV): No Hx Hepatitis C: Yes (VIRAL LOAD NEGATIVE) Hx Depression: Yes (Interrmittent; No previous treatment.) Hx Suicide Attempt: No Hx Bipolar Disorder: No Hx Schizophrenia: No - Patient Surgical History Past Surgical History: Yes Hx Neurologic Surgery: No Hx Cataract Extraction: No Hx Cardiac Surgery: Yes (Heart Sx, 07/2011 for SV..T CARDIAC ABLATION) Hx Lung Surgery: No Hx Breast Surgery: No Hx Breast Biopsy: No Hx Abdominal Surgery: No Hx Appendectomy: No Hx Cholecystectomy: No Hx Genitourinary Surgery: No Hx Section: No Hx Orthopedic Surgery: No Other Surgical History: cardiac ablation for a-fib 2011 Anesthesia Reaction: No - PPD History Previous Implant?: Yes Documented Results: Negative w/proof Date: 11/29/16 Results: 0 mm PPD to be Administered?: No - Reproductive History Patient is a Female of Child Bearing Age (11 -55 yrs old): No (male) - Smoking Cessation Smoking history: Current every day smoker Have you smoked in the past 12 months: Yes Aproximately how many cigarettes per day: 10 Cigars Per Day: 0 Hx Chewing Tobacco Use: No Initiated information on smoking cessation: Yes 'Breaking Loose' booklet given: 03/09/17 (give on floor) - Substance & Tx. History Hx Alcohol Use: Yes Hx Substance Use: No Substance Use Type: Alcohol Hx Substance Use Treatment: Yes (detox, rehab) - Substances Abused Alcohol Route: Oral Frequency: Daily Amount used: 20 cans 25 oz beers; 4 pints liquor Age of first use: 13 Date of Last Use: 03/09/17 Family Disease History - Family Disease History Family Disease History: Diabetes: Father (, etoh), Heart Disease: Father , Mother (living, ), Brother (suicide ), Other: Father, Mother, Sister (two living - healthy), Daughter (one - healthy) Admission Physical Exam BHS - Vital Signs Vital Signs: Vital Signs - 24 hr 03/09/17 12:28 Temperature 96.4 F L Pulse Rate 97 H Respiratory 18 Rate Blood Pressure 138/101 - Physical General Appearance: Yes: Nourished, Appropriately Dressed, Moderate Distress, Obese HEENTM: Yes: Hearing grossly Normal, Normocephalic, Normal Voice, Pharynx Normal Respiratory: Yes: Normal Breath Sounds, No Respiratory Distress Neck: Yes: No masses,lesions,Nodules, Supple Breast: Yes: Breast Exam Deferred Cardiology: Yes: Regular Rhythm, Regular Rate Abdominal: Yes: Flat, Protuberent Genitourinary: Yes: Frequency Back: Yes: Normal Inspection Musculoskeletal: Yes: Joint Stiffness, Other (limping, left knee pain - no overt swelling) Extremities: Yes: Normal Inspection, Non-Tender 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: Yes: Fully Oriented, Alert, Normal Mood/Affect Integumentary: Yes: Normal Color, Dry, Warm Lymphatic: Yes: Within Normal Limits - Diagnostic (1) Alcohol dependence with uncomplicated withdrawal Current Visit: Yes Status: Chronic (2) Arthritis of knee, degenerative Current Visit: Yes Status: Chronic Qualifiers: Osteoarthritis type: primary Laterality: left Qualified Code(s): M17.12 - Unilateral primary osteoarthritis, left knee (3) Blackout Current Visit: Yes Status: Chronic (4) Essential hypertension Current Visit: Yes Status: Chronic (5) History of atrial fibrillation Current Visit: Yes Status: Chronic Comment: Treated with Cardiac Ablation, 2011. (6) History of cardiac radiofrequency ablation Current Visit: Yes Status: Chronic (7) Hyperlipidemia Current Visit: Yes Status: Chronic (8) Nicotine dependence Current Visit: Yes Status: Chronic Qualifiers: Nicotine product type: cigarettes Substance use status: uncomplicated Qualified Code(s): F17.210 - Nicotine dependence, cigarettes, uncomplicated (9) Obesity Current Visit: No Status: Chronic Qualifiers: Obesity type: due to excess calories Obesity classification: adult class 1 (BMI 30 - 34.9) Body mass index: BMI 30.0-30.9 Cleared for Admission [facility] - Detox or Rehab [facility] Level of Care: Medically Managed Detox Regimen/Protocol: Librium [facility] Breath Alcohol Content Breath Alcohol Content: 0.310 Urine Drug Screen - Results Drug Screen Negative: Yes
[2017-03-09] MEDS ORDERED: MAG HYDROX/AL HYDROX/SIMETH 30 ML UNIT-DOSE CUP PO PRN (14:13)
[2017-03-09] MEDS ORDERED: guaiFENesin/D-METHORPHAN HB 10 ML UNIT-DOSE CUPS PO PRN (14:13)
[2017-03-09] MEDS ORDERED: hydrOXYzine PAMOATE 50 MG CAPSULE (FP) PO PRN (14:13)
[2017-03-09] MEDS ORDERED: P-EPHED 60MG/TRIPROLIDI 2.5MG TABLET PO PRN (14:13)
[2017-03-09] MEDS ORDERED: MAGNESIUM HYDROX 2400MG/30ML ORAL SUSPENSION 30 ML CUP PO PRN (14:13)
[2017-03-09] MEDS ORDERED: ACETAMINOPHEN 325 MG TABLET (FP) PO PRN (14:13)
[2017-03-09] MEDS ORDERED: chlordiazePOXIDE HCL 25 MG CAPSULE PO ONE (14:13)
[2017-03-09] MEDS ORDERED: MAGNESIUM CITRATE 300 ML BOTTLE PO PRN (14:13)
[2017-03-09] MEDS ORDERED: MENTHOL/PHENOL 1 EACH UD MM PRN (14:13)
[2017-03-09] MEDS ORDERED: chlordiazePOXIDE HCL 25 MG CAPSULE PO PRN (14:13)
[2017-03-09] MEDS ORDERED: LOPERAMIDE HCL 2 MG CAPSULE PO PRN (14:13)
[2017-03-09] MEDS: NICOTINE 21 MG/24 HOURS TOPICAL PATCH TD SCH (17:09)
[2017-03-09] MEDS: chlordiazePOXIDE HCL 25 MG CAPSULE PO SCH ×2 (17:09→22:29)
[2017-03-09] MEDS: ASPIRIN 81 MG CHEWABLE TABLETS PO SCH (17:10)
[2017-03-09] MEDS: LISINOPRIL 20 MG TABLET (FP) PO SCH (17:10)
[2017-03-09 22:10] LABS: URINE APPEARANCE CLEAR; URINE BILIRUBIN NEGATIVE (NEGATIVE); URINE BLOOD NEGATIVE (NEGATIVE); URINE COLOR STRAW; URINE GLUCOSE (UA) NEGATIVE (NEGATIVE); URINE KETONE NEGATIVE (NEGATIVE); URINE LEUK ESTERASE NEGATIVE (NEGATIVE); URINE NITRITE NEGATIVE (NEGATIVE); URINE PROTEIN NEGATIVE (NEGATIVE); URINE UROBILINOGEN NEGATIVE mg/dL (0.2-1.0)
[2017-03-09] MEDS: THIAMINE HCL 100 MG TABLET (FP) PO SCH (22:29)
[2017-03-09] MEDS: ATORVASTATIN CA 40 MG TABLET (FP) PO SCH (22:29)
[2017-03-09] MEDS: METHYL SALICYLATE/MENTHOL OINT 30 GM TUBE TP SCH (22:57)
[2017-03-10] MEDS: chlordiazePOXIDE HCL 25 MG CAPSULE PO SCH ×4 (05:53→22:08)
[2017-03-10] MEDS: ASPIRIN 81 MG CHEWABLE TABLETS PO SCH (10:06)
[2017-03-10] MEDS: PRENATAL VITAMINS W/ FOLIC ACID TABLET (FP) PO SCH (10:06)
[2017-03-10] MEDS: METHYL SALICYLATE/MENTHOL OINT 30 GM TUBE TP SCH ×2 (10:07→22:08)
[2017-03-10] MEDS: NICOTINE 21 MG/24 HOURS TOPICAL PATCH TD SCH (10:07)
[2017-03-10] MEDS: LISINOPRIL 20 MG TABLET (FP) PO SCH (10:07)
[2017-03-10 10:18] LABS: HEMOGLOBIN 12.3 GM/dL (11.7-16.9); MCH 21.6 pg (25.7-33.7); MCHC 30.8 g/dl (32.0-35.9); MEAN CELL VOLUME 70.1 fl (80-96); MEAN PLT VOLUME 10.9 fl (7.5-11.1); PLATELET COUNT 165 K/MM3 (134-434); RBC 5.71 M/mm3 (4.00-5.60); WHITE BLOOD COUNT 5.6 K/mm3 (4.0-10.0)
[2017-03-10 10:25] LABS: ANION GAP 7 (8-16); BLOOD UREA NITROGEN 15 mg/dL (7-18); CALCIUM 8.1 mg/dL (8.5-10.1); CHLORIDE 103 mmol/L (98-107); CO2 29 mmol/L (21-32); GLUCOSE,RANDOM 86 mg/dL (74-106); POTASSIUM 4.1 mmol/L (3.5-5.1); SODIUM 139 mmol/L (136-145)
[2017-03-10 10:28] LABS: ALK PHOS 107 U/L (45-117); BILIRUBIN,TOTAL 0.7 mg/dL (0.2-1.0); CREATININE 1.1 mg/dL (0.7-1.3); SGOT/AST 25 U/L (15-37); SGPT/ALT 25 U/L (12-78)
[2017-03-10 10:29] LABS: ADD RBC MORPHOLOGY YES
[2017-03-10 11:12] LABS: TARGET CELLS 1+
--- NOTE | 2017-03-10 11:39 | EKG ---
Test Reason : Blood Pressure : / mmHG Vent. Rate : 101 BPM Atrial Rate : 101 BPM P-R Int : 192 ms QRS Dur : 084 ms QT Int : 396 ms P-R-T Axes : 056 -08 042 degrees QTc Int : 513 ms SINUS TACHYCARDIA WITH FREQUENT PREMATURE VENTRICULAR COMPLEXES NONSPECIFIC ST ABNORMALITY WHEN COMPARED WITH ECG OF 27-NOV-2016 19:16, NO SIGNIFICANT CHANGE WAS FOUND Confirmed by DON VARNER MD ([id number]) on 03/10/2017 11:38:49 AM Referred By: Confirmed By:DON VARNER MD
--- NOTE | 2017-03-10 14:23 | PN ---
S CIWA - CIWA Score Nausea/Vomitin-Mild Nausea/No Vomiting Muscle Tremors: 4-Moderate,w/Arms Extend Anxiety: 3 Agitation: 3 Paroxysmal Sweats: 3 Orientation: 0-Oriented Tacttile Disturbances: 0-None Auditory Disturbances: 0-None Visual Disturbances: 0-None Headache: 0-None Present CIWA-Ar Total Score: 14 BHS Progress Note (SOAP) Subjective: Sweating,interrupted sleep,restless,tremors,anxiety. Objective: 03/10/17 14:22 Vital Signs - 8 hr 03/10/17 03/10/17 09:46 14:20 Temperature 97.9 F 98.2 F Pulse Rate 78 84 Respiratory 20 20 Rate Blood Pressure 154/98 148/90 Laboratory Tests 03/09/17 03/10/17 03/10/17 21:00 07:40 07:40 WBC 5.6 RBC 5.71 H Hgb 12.3 D Hct 40.0 MCV 70.1 L MCH 21.6 L MCHC 30.8 L RDW 17.0 H Plt Count 165 D MPV 10.9 D Hypochromia 2+ Platelet Comment Polychromasia 1+ Target Cells 1+ Sodium 139 Potassium 4.1 Chloride 103 Carbon Dioxide 29 D Anion Gap 7 L BUN 15 Creatinine 1.1 Creat Clearance w eGFR > 60 Random Glucose 86 D Calcium 8.1 L Total Bilirubin 0.7 D AST 25 D ALT 25 D Alkaline Phosphatase 107 Total Protein 6.0 L Albumin 3.0 L D Urine Color Straw Urine Appearance Clear Urine pH 6.0 Ur Specific [place] 1.006 Urine Protein Negative Urine Glucose (UA) Negative Urine Ketones Negative Urine Blood Negative Urine Nitrite Negative Urine Bilirubin Negative Urine Urobilinogen Negative Ur Leukocyte Esterase Negative RPR Titer HIV 1&2 Antibody Screen HIV P24 Antigen 03/10/17 03/10/17 07:40 07:40 WBC RBC Hgb Hct MCV MCH MCHC RDW Plt Count MPV Hypochromia Platelet Comment Polychromasia Target Cells Sodium Potassium Chloride Carbon Dioxide Anion Gap BUN Creatinine Creat Clearance w eGFR Random Glucose Calcium Total Bilirubin AST ALT Alkaline Phosphatase Total Protein Albumin Urine Color Urine Appearance Urine pH Ur Specific [place] Urine Protein Urine Glucose (UA) Urine Ketones Urine Blood Urine Nitrite Urine Bilirubin Urine Urobilinogen Ur Leukocyte Esterase RPR Titer Nonreactive HIV 1&2 Antibody Screen Negative HIV P24 Antigen Negative labs noted Assessment: 03/10/17 14:23 Withdrawal sx. Plan: Continue detox
[2017-03-10] MEDS: amLODIPine BESYLATE 5 MG TABLET (FP) PO SCH (14:31)
[2017-03-10] MEDS ORDERED: cloNIDine HCL 0.1 MG TABLET PO ONE (22:00)
[2017-03-10] MEDS: ATORVASTATIN CA 40 MG TABLET (FP) PO SCH (22:08)
[2017-03-10] MEDS: THIAMINE HCL 100 MG TABLET (FP) PO SCH (22:08)
[2017-03-11] MEDS: chlordiazePOXIDE HCL 25 MG CAPSULE PO SCH ×2 (05:06→10:15)
[2017-03-11] MEDS: PRENATAL VITAMINS W/ FOLIC ACID TABLET (FP) PO SCH (10:14)
[2017-03-11] MEDS: ASPIRIN 81 MG CHEWABLE TABLETS PO SCH (10:15)
[2017-03-11] MEDS: amLODIPine BESYLATE 5 MG TABLET (FP) PO SCH (10:15)
[2017-03-11] MEDS: LISINOPRIL 20 MG TABLET (FP) PO SCH (10:15)
[2017-03-11] MEDS: METHYL SALICYLATE/MENTHOL OINT 30 GM TUBE TP SCH (10:16)
[2017-03-11] MEDS: NICOTINE 21 MG/24 HOURS TOPICAL PATCH TD SCH (10:17)
--- NOTE | 2017-03-11 10:17 | PN ---
[facility] CIWA - CIWA Score Nausea/Vomitin-No Nausea/No Vomiting Muscle Tremors: 4-Moderate,w/Arms Extend Anxiety: 4-Mod. Anxious/Guarded Agitation: 4-Moderately Restless Paroxysmal Sweats: 1-Minimal Palms Moist Orientation: 0-Oriented Tacttile Disturbances: 3-Moderate Itch/Numb/Burn Auditory Disturbances: 0-None Visual Disturbances: 0-None Headache: 0-None Present CIWA-Ar Total Score: 16 S Progress Note (SOAP) Subjective: ANXIETY,SWEATS,FATIGUE. Objective: Vital Signs Temperature 96.3 F L 03/11/17 09:57 Pulse Rate 77 03/11/17 09:57 Respiratory Rate 20 03/11/17 09:57 Blood Pressure 150/100 03/11/17 09:57 O2 Sat by Pulse Oximetry (%) Laboratory Last Values WBC 5.6 K/mm3 (4.0-10.0) 03/10/17 07:40 RBC 5.71 M/mm3 (4.00-5.60) H 03/10/17 07:40 Hgb 12.3 GM/dL (11.7-16.9) D 03/10/17 07:40 Hct 40.0 % (35.4-49) 03/10/17 07:40 MCV 70.1 fl (80-96) L 03/10/17 07:40 MCH 21.6 pg (25.7-33.7) L 03/10/17 07:40 MCHC 30.8 g/dl (32.0-35.9) L 03/10/17 07:40 RDW 17.0 % (11.9-15.9) H 03/10/17 07:40 Plt Count 165 K/MM3 (134-434) D 03/10/17 07:40 MPV 10.9 fl (7.5-11.1) D 03/10/17 07:40 Hypochromia 2+ 03/10/17 07:40 Platelet Comment 03/10/17 07:40 Polychromasia 1+ 03/10/17 07:40 Target Cells 1+ 03/10/17 07:40 Sodium 139 mmol/L (136-145) 03/10/17 07:40 Potassium 4.1 mmol/L (3.5-5.1) 03/10/17 07:40 Chloride 103 mmol/L (98-107) 03/10/17 07:40 Carbon Dioxide 29 mmol/L (21-32) D 03/10/17 07:40 Anion Gap 7 (8-16) L 03/10/17 07:40 BUN 15 mg/dL (7-18) 03/10/17 07:40 Creatinine 1.1 mg/dL (0.7-1.3) 03/10/17 07:40 Creat Clearance w eGFR > 60 (>60) 03/10/17 07:40 Random Glucose 86 mg/dL (74-106) D 03/10/17 07:40 Calcium 8.1 mg/dL (8.5-10.1) L 03/10/17 07:40 Total Bilirubin 0.7 mg/dL (0.2-1.0) D 03/10/17 07:40 AST 25 U/L (15-37) D 03/10/17 07:40 ALT 25 U/L (12-78) D 03/10/17 07:40 Alkaline Phosphatase 107 U/L (45-117) 03/10/17 07:40 Total Protein 6.0 g/dl (6.4-8.2) L 03/10/17 07:40 Albumin 3.0 g/dl (3.4-5.0) L D 03/10/17 07:40 Urine Color Straw 03/09/17 21:00 Urine Appearance Clear 03/09/17 21:00 Urine pH 6.0 (5.0-8.0) 03/09/17 21:00 Ur Specific [place] 1.006 (1.001-1.035) 03/09/17 21:00 Urine Protein Negative (NEGATIVE) 03/09/17 21:00 Urine Glucose (UA) Negative (NEGATIVE) 03/09/17 21:00 Urine Ketones Negative (NEGATIVE) 03/09/17 21:00 Urine Blood Negative (NEGATIVE) 03/09/17 21:00 Urine Nitrite Negative (NEGATIVE) 03/09/17 21:00 Urine Bilirubin Negative (NEGATIVE) 03/09/17 21:00 Urine Urobilinogen Negative mg/dL (0.2-1.0) 03/09/17 21:00 Ur Leukocyte Esterase Negative (NEGATIVE) 03/09/17 21:00 RPR Titer Nonreactive (NONREACTIVE) 03/10/17 07:40 HIV 1&2 Antibody Screen Negative 03/10/17 07:40 HIV P24 Antigen Negative 03/10/17 07:40 Assessment: 03/11/17 10:20 WITHDRAWAL SX Plan: CONTINUE DETOX
[2017-03-11 13:49] VITALS: BP 159/94; PULSE 79; TEMP 98
--- NOTE | 2017-03-11 15:25 | DS ---
[facility] Detox Discharge Summary Admission Date: 03/09/17 Discharge Date: 03/11/17 - History Present History: Alcohol Dependence, Cocaine Dependence Additional Comments: PT SIGNED OUT AMA FOR PERSONAL REASONS. ALL EFFORTS TO ENCOURAGED PT TO COMPLETE DETOX FAILED. ALERT O X 3. NAD. PT STATE HE HAS OWN REFILLS TO [employer] FROM HIS PHARMACY-[facility]. Pertinent Past History: SEE DX BELOW - Physical Exam Results Vital Signs: Vital Signs Temperature 98.0 F 03/11/17 13:48 Pulse Rate 79 03/11/17 13:48 Respiratory Rate 20 03/11/17 13:48 Blood Pressure 159/94 03/11/17 13:48 O2 Sat by Pulse Oximetry (%) Pertinent Admission Physical Exam Findings: WITHDRAWAL SX Laboratory Last Values WBC 5.6 K/mm3 (4.0-10.0) 03/10/17 07:40 RBC 5.71 M/mm3 (4.00-5.60) H 03/10/17 07:40 Hgb 12.3 GM/dL (11.7-16.9) D 03/10/17 07:40 Hct 40.0 % (35.4-49) 03/10/17 07:40 MCV 70.1 fl (80-96) L 03/10/17 07:40 MCH 21.6 pg (25.7-33.7) L 03/10/17 07:40 MCHC 30.8 g/dl (32.0-35.9) L 03/10/17 07:40 RDW 17.0 % (11.9-15.9) H 03/10/17 07:40 Plt Count 165 K/MM3 (134-434) D 03/10/17 07:40 MPV 10.9 fl (7.5-11.1) D 03/10/17 07:40 Hypochromia 2+ 03/10/17 07:40 Platelet Comment 03/10/17 07:40 Polychromasia 1+ 03/10/17 07:40 Target Cells 1+ 03/10/17 07:40 Sodium 139 mmol/L (136-145) 03/10/17 07:40 Potassium 4.1 mmol/L (3.5-5.1) 03/10/17 07:40 Chloride 103 mmol/L (98-107) 03/10/17 07:40 Carbon Dioxide 29 mmol/L (21-32) D 03/10/17 07:40 Anion Gap 7 (8-16) L 03/10/17 07:40 BUN 15 mg/dL (7-18) 03/10/17 07:40 Creatinine 1.1 mg/dL (0.7-1.3) 03/10/17 07:40 Creat Clearance w eGFR > 60 (>60) 03/10/17 07:40 Random Glucose 86 mg/dL (74-106) D 03/10/17 07:40 Calcium 8.1 mg/dL (8.5-10.1) L 03/10/17 07:40 Total Bilirubin 0.7 mg/dL (0.2-1.0) D 03/10/17 07:40 AST 25 U/L (15-37) D 03/10/17 07:40 ALT 25 U/L (12-78) D 03/10/17 07:40 Alkaline Phosphatase 107 U/L (45-117) 03/10/17 07:40 Total Protein 6.0 g/dl (6.4-8.2) L 03/10/17 07:40 Albumin 3.0 g/dl (3.4-5.0) L D 03/10/17 07:40 Urine Color Straw 03/09/17 21:00 Urine Appearance Clear 03/09/17 21:00 Urine pH 6.0 (5.0-8.0) 03/09/17 21:00 Ur Specific [place] 1.006 (1.001-1.035) 03/09/17 21:00 Urine Protein Negative (NEGATIVE) 03/09/17 21:00 Urine Glucose (UA) Negative (NEGATIVE) 03/09/17 21:00 Urine Ketones Negative (NEGATIVE) 03/09/17 21:00 Urine Blood Negative (NEGATIVE) 03/09/17 21:00 Urine Nitrite Negative (NEGATIVE) 03/09/17 21:00 Urine Bilirubin Negative (NEGATIVE) 03/09/17 21:00 Urine Urobilinogen Negative mg/dL (0.2-1.0) 03/09/17 21:00 Ur Leukocyte Esterase Negative (NEGATIVE) 03/09/17 21:00 RPR Titer Nonreactive (NONREACTIVE) 03/10/17 07:40 HIV 1&2 Antibody Screen Negative 03/10/17 07:40 HIV P24 Antigen Negative 03/10/17 07:40 - Treatment Hospital Course: Discharged Condition Good - Medication Discharge Medications: Ambulatory Orders Aspirin [ASA -] 81 mg PO DAILY #30 tab.chew 11/30/16 Atorvastatin Ca [Lipitor] 40 mg PO HS #30 tablet 11/30/16 Lisinopril [Prinivil] 20 mg PO DAILY #30 tab 11/30/16 - Diagnosis (1) Alcohol dependence with uncomplicated withdrawal Current Visit: Yes Status: Acute (2) Arthritis of knee, degenerative Current Visit: Yes Status: Chronic Qualifiers: Osteoarthritis type: primary Laterality: left Qualified Code(s): M17.12 - Unilateral primary osteoarthritis, left knee (3) Essential hypertension Current Visit: Yes Status: Chronic (4) History of atrial fibrillation Current Visit: Yes Status: Chronic (5) History of cardiac radiofrequency ablation Current Visit: Yes Status: Chronic (6) Hyperlipidemia Current Visit: Yes Status: Chronic (7) Nicotine dependence Current Visit: Yes Status: Acute Qualifiers: Nicotine product type: cigarettes Substance use status: in withdrawal Qualified Code(s): F17.213 - Nicotine dependence, cigarettes, with withdrawal (8) Cocaine dependence Current Visit: Yes Status: Acute (9) Hepatitis C Current Visit: Yes Status: Chronic Qualifiers: Viral hepatitis chronicity: chronic (10) Chronic a-fib Current Visit: Yes Status: Chronic (11) GERD (gastroesophageal reflux disease) Current Visit: Yes Status: Chronic Qualifiers: Esophagitis presence: without esophagitis Qualified Code(s): K21.9 - Gastro -esophageal reflux disease without esophagitis (12) Obesity Current Visit: Yes Status: Chronic Qualifiers: Obesity type: due to excess calories Obesity classification: adult class 1 (BMI 30 - 34.9) Body mass index: BMI 30.0-30.9 - AMA Did Patient Leave Against Medical Advice: Yes (AMA)
[2017-03-11] MEDS ORDERED: chlordiazePOXIDE 5 MG CAPSULE PO SCH (17:00)
[2017-03-12] MEDS ORDERED: chlordiazePOXIDE HCL 10 MG CAPSULE PO SCH (17:00)
== END 2017-03-11 15:40 | disposition left against medical advice (07) | DRG 770 ==
LOC: YASAS 11:06 → Y3N 15:24
PROVIDERS: ADMIT Internal Medicine; ATTEND Internal Medicine
PROC: HZ2ZZZZ Detoxification Services for Substance Abuse Treatment (ICD-10-PCS; principal; 2017-03-09)
DX: F10.230 Alcohol dependence with withdrawal, uncomplicated (principal); F14.20 Cocaine dependence, uncomplicated; F17.213 Nicotine dependence, cigarettes, with withdrawal; I10 Essential (primary) hypertension; I48.91 Unspecified atrial fibrillation; E78.5 Hyperlipidemia, unspecified; B18.2 Chronic viral hepatitis C; K21.9 Gastro-esophageal reflux disease without esophagitis; E66.09 Other obesity due to excess calories; Z68.30 Body mass index [BMI] 30.0-30.9, adult; M17.12 Unilateral primary osteoarthritis, left knee; Z59.0 Homelessness
CPT/HCPCS: 36415; 80053; 81003; 85027; 86593; 87389; 93005; 93010